=== PATIENT | male | born 2000 | race Caucasian/White ===

== ENCOUNTER 2023-07-17 06:38 | Emergency (ER) | payer BC ==
[2023-07-17] MEDS ORDERED: Lactated Ringers 1,000 ML IV ONE (06:39)
[2023-07-17] MEDS ORDERED: Propofol 200 MG/20 ML SDV IV ONE (06:39)
[2023-07-17] MEDS ORDERED: Midazolam 1 MG/ML 2 ML SDV IV ONE (06:39)
[2023-07-17] MEDS ORDERED: Morphine 4 MG/ML VIAL IVPUSH ONE (06:59)
== END 2023-07-17 09:05 | disposition home or self-care (01) ==
LOC: FB.ED 06:38
DX: S43.015A Anterior dislocation of left humerus, initial encounter (principal); S43.035A Inferior dislocation of left humerus, initial encounter; R56.9 Unspecified convulsions; Z88.5 Allergy status to narcotic agent; X50.0XXA Overexertion from strenuous movement or load, initial encounter
CPT/HCPCS: 23650; 73020-LT; 73030-LT; 96374; 99152; 99283-25; J2250; J2270; J2704; J7120